=== PATIENT | male | born 1960 | race Caucasian/White ===

== ENCOUNTER 2020-08-09 19:28 | Emergency (ER) | payer BC ==
--- NOTE | 2020-08-09 20:03 | EDM.PDOC ---
ED HPI GENERAL MEDICAL PROBLEM - General Chief Complaint: Genitourinary Problem Stated Complaint: hesitancy with stream Time Seen by Provider: 08/09/20 19:40 Source of Information: Reports: Patient History Limitations: Reports: No Limitations - History of Present Illness INITIAL COMMENTS - FREE TEXT/NARRATIVE: Mario is a 60 year old male who presents to the ER with complaints of hesitancy with his stream, chills. Is concerned about a possible prostatitis. Has a long history of infections. Had a cystoscope on Wednesday in [place] to determine if he was a candidate for a bladder lift to help prevent so many infections. Relates that he has much difficult with his stream and that typically indicates a prostate infection. Had a UA at the clinic here today but felt it was clear with no signs of infection. Marielle has had multiple episodes of infections of his prostate without a positive urine and was hoping to get antibiotics. This afternoon, has been shaking, had chills. Low grade fevers. No nausea or vomiting. Has been able to eat well. No diarrhea or constipation. No blood in stool. Has not noted hematuria. Onset: Gradual Duration: Day(s):, Getting Worse Location: Reports: Abdomen, Generalized Associated Symptoms: Reports: Fever/Chills, Malaise. Denies: Chest Pain, Cough, Loss of Appetite, Nausea/Vomiting, Shortness of Breath - Related Data Allergies Allergy/AdvReac Type Severity Reaction Status Date / Time No Known Allergies Allergy Verified 08/09/20 20:22 Home Meds: Home Meds Tamsulosin [Flomax] 1 tab PO DAILY 08/09/20 [History] Past Medical History Cardiovascular History: Reports: Hypertension Gastrointestinal History: Reports: GERD Genitourinary History: Reports: Prostate Disorder (multiple episodes of prostatitis) ED ROS GENERAL - Review of Systems Review Of Systems: See Below Constitutional: Reports: Fever, Chills, Malaise. Denies: Weakness, Fatigue, Decreased Appetite HEENT: Reports: No Symptoms Respiratory: Denies: Shortness of Breath, Cough Cardiovascular: Denies: Chest Pain, Edema, Lightheadedness Endocrine: Denies: Fatigue GI/Abdominal: Denies: Abdominal Pain, Black Stool, Bloody Stool, Constipation, Diarrhea, Nausea, Vomiting : Reports: Urinary Retention, Other (hesitancy) Musculoskeletal: Reports: No Symptoms Skin: Reports: No Symptoms Neurological: Reports: No Symptoms ED EXAM, RENAL/ - Physical Exam Exam: See Below Exam Limited By: No Limitations General Appearance: Alert, WD/WN, No Apparent Distress Ears: Normal External Exam, Normal TMs Nose: Normal Inspection, Normal Mucosa, No Blood Throat/Mouth: Normal Inspection, Normal Oropharynx Head: Normocephalic Neck: Normal Inspection, Supple, Non-Tender Respiratory/Chest: No Respiratory Distress, Lungs Clear, Normal Breath Sounds Cardiovascular: Regular Rate, Rhythm GI/Abdominal: Normal Bowel Sounds, Soft, Non-Tender Extremities: Normal Inspection, No Pedal Edema Neurological: Alert, Oriented Skin Exam: Warm, Dry Course - Vital Signs Last Recorded V/S: Last Vital Signs Temp 99.9 F 08/09/20 19:30 Pulse 107 H 08/09/20 19:30 Resp 18 08/09/20 19:30 BP 158/83 H 08/09/20 19:30 Pulse Ox 98 08/09/20 19:30 - Orders/Labs/Meds Orders: Active Orders 24 hr Category Date Time Status CULTURE URINE [RM] Stat Lab 08/09/20 20:07 Received Labs: Laboratory Tests 08/09/20 08/09/20 08/09/20 Range/Units 19:54 19:54 20:05 WBC 15.3 H (4.0-10.0) x10^3/uL RBC 5.01 (4.5-6.0) x10^6/uL Hgb 14.8 (14.0-18.0) g/dL Hct 42.9 (40.0-52.0) % MCV 85.6 (78.0-93.0) fL MCH 29.5 (26.0-32.0) pg MCHC 34.5 (32.0-36.0) g/dL RDW Coeff of Shellie 13.1 (10.0-15.0) % Plt Count 192 (130-400) x10^3/uL Neut % (Auto) 84.9 H (50.0-80.0) % Lymph % (Auto) 6.6 L (25.0-50.0) % [place] % (Auto) 8.2 (2.0-11.0) % Eos % (Auto) 0.2 (0.0-4.0) % Baso % (Auto) 0.1 L (0.2-1.2) % Sodium 134 L (136-145) mmol/L Potassium 3.6 (3.5-5.1) mmol/L Chloride 97 L (98-107) mmol/L Carbon Dioxide 26 (21-32) mmol/L Anion Gap 14.6 (5-15) mmol/L BUN 11 (7-18) mg/dL Creatinine 1.2 (0.70-1.30) mg/dL Est Cr Clr Drug Dosing 75.83 mL/min Estimated GFR (MDRD) > 60 Glucose 152 H (74-106) mg/dL Calcium 8.1 L (8.5-10.1) mg/dL Corrected Calcium 8.42 L (8.5-10.1) mg/dL Total Bilirubin 0.9 (0.2-1.0) mg/dL AST 15 (15-37) U/L ALT 31 (16-63) U/L Alkaline Phosphatase 64 (46-116) U/L C-Reactive Protein 7.4 H (<=0.9) mg/dL Total Protein 7.3 (6.4-8.2) g/dL Albumin 3.6 (3.4-5.0) g/dL Globulin 3.7 Albumin/Globulin Ratio 0.97 Urine Color Light yellow (YELLOW) Urine Appearance Slightly cloudy H (CLEAR) Urine pH 5.5 (5.0-8.0) Ur Specific [place]e 1.010 Urine Protein Negative (NEGATIVE) mg/dL Urine Glucose (UA) Negative (NEGATIVE) mg/dL Urine Ketones Negative (NEGATIVE) mg/dL Urine Occult Blood Moderate H (NEGATIVE) Urine Nitrite Negative (NEGATIVE) Urine Bilirubin Negative (NEGATIVE) Urine Urobilinogen 0.2 (0.2) EU/dL Ur Leukocyte Esterase Small H (NEGATIVE) Urine RBC 10-20 H (NOT SEEN) /HPF Urine WBC 20-30 H (NOT SEEN) /HPF Ur Squamous Epith Cells Not seen (NOT SEEN) /HPF Urine Bacteria Occasional H (NOT SEEN) /HPF Urine Mucus Rare H (NOT SEEN) /LPF - Re-Assessments/Exams Free Text/Narrative Re-Assessment/Exam: 08/09/20 20:10 Bladder scan done by nurse, noted 115 mls. 08/09/20 20:24 Lab results discussed with patient. WBC is elevated with high neutrophils. CRP elevated. Will give Rocephin tonight, start oral meds in am. Patient in agreement with plan. Departure - Departure Time of Disposition: 20:25 Disposition: Home, Self-Care 01 Condition: Fair Clinical Impression: Prostatitis - Discharge Information *PRESCRIPTION DRUG MONITORING PROGRAM REVIEWED*: No *COPY OF PRESCRIPTION DRUG MONITORING REPORT IN PATIENT KRISTOPHER: No Instructions: Prostatitis, [id number] Forms: ED Department Discharge Additional Instructions: 1. Push fluids 2. Alternate tylenol with ibuprofen for fever or discomfort 3. Cipro 500 mg twice a day, start in am. 4. Follow up if worsening symptoms or concerns. Sepsis Event Note (ED) - Focused Exam Vital Signs: Vital Signs Temp Pulse Resp BP Pulse Ox 08/09/20 19:30 99.9 F 107 H 18 158/83 H 98 - My Orders Last 24 Hours: My Active Orders 08/09/20 20:07 CULTURE URINE [RM] Stat - Assessment/Plan Last 24 Hours: My Active Orders 08/09/20 20:07 CULTURE URINE [RM] Stat
[2020-08-09 20:13] LABS: CHLORIDE,CL 97 mmol/L (98-107); SODIUM,NA 134 mmol/L (136-145)
[2020-08-09 20:18] LABS: ANION GAP 14.6 mmol/L (5-15)
[2020-08-09] MEDS: cefTRIAXone 1 GM Vial IM ONE (20:33)
== END 2020-08-09 20:38 | disposition home or self-care (01) ==
LOC: VM.ED 19:28
DX: N41.9 Inflammatory disease of prostate, unspecified (principal); D72.829 Elevated white blood cell count, unspecified; I10 Essential (primary) hypertension; Z79.899 Other long term (current) drug therapy
CPT/HCPCS: 36415; 80053; 81001; 85025; 86140; 87086; 87088; 87186; 96372; 99283; J0696